=== PATIENT | male | born 1955 | race Caucasian/White ===

== ENCOUNTER 2017-06-23 09:29 | Inpatient (IN) | payer BC ==
[~2017-06-23 09:29] MED LIST: CEFAZOLIN 1 GM INJ
[2017-06-23] MEDS ORDERED: GABAPENTIN 300 MG CAP PO (10:00)
[2017-06-23] MEDS ORDERED: DEXAMETHASONE 1 MG TAB PO (10:00)
[2017-06-23] MEDS ORDERED: traMADol 50 MG TAB PO (10:00)
[2017-06-23] MEDS ORDERED: BUPIVACAINE 0.75%/DEXT (SPINAL) 2 ML INJ (10:04)
[2017-06-23] MEDS: VANCOMYCIN 1 GM (PMX) 250 ML IVPB (11:00)
[2017-06-23] MEDS ORDERED: morphine SULFATE/PF (10 MG/10 ML) INJ (11:16)
[2017-06-23] MEDS ORDERED: MIDAZOLAM 1 MG/ML 2 ML INJ (11:17)
[2017-06-23] MEDS ORDERED: METOCLOPRAMIDE 10 MG INJ (11:18)
[2017-06-23] MEDS ORDERED: ONDANSETRON 4 MG INJ (11:18)
[2017-06-23] MEDS ORDERED: PROPOFOL 20 ML (11:36)
[2017-06-23] MEDS ORDERED: ACETAMINOPHEN 1000MG/100ML IV 100 ML (11:36)
[2017-06-23] MEDS ORDERED: EPHEDrine SULFATE 50 MG/5 ML SYG ×3 (11:36→13:19)
[2017-06-23] MEDS: BUPIVACAINE 0.5% (SDV) 30 ML, morphine SULFATE (PF) 8 MG, EPINEPHrine 0.3 MG, CLONIDINE... IRR (12:04)
[2017-06-23] MEDS: TRANEXAMIC ACID 1,000 MG in DEXTROSE 5% 100 ML IVPB (12:05)
[2017-06-23] MEDS: POLYMYXIN/BACITRACIN 1L IRRIG (12:06)
[2017-06-23] MEDS: SOD CHLORIDE 0.9% 100 ML, TRANEXAMIC ACID 3,000 MG IRR (12:30)
[2017-06-23] MEDS: ONDANSETRON 4 MG INJ IV (14:28)
[2017-06-23] MEDS: MEPERIDINE 25 MG INJ IV (14:28)
[2017-06-23] MEDS: HYDROmorphONE (0.2 MG/ML) 10ML SYG IV ×2 (14:28→14:33)
[2017-06-23] MEDS ORDERED: HYDROmorphONE (0.2 MG/ML) 10ML SYG IV ×2 (14:30)
[2017-06-23] MEDS ORDERED: DIPHENHYDRAMINE 50 MG INJ IV ×2 (14:30→16:00)
[2017-06-23] MEDS: TRANEXAMIC ACID 1,000 MG in DEXTROSE 5% 100 ML IV ×2 (15:02→17:44)
[2017-06-23] MEDS: CEFAZOLIN 1 GM/50 ML (PMX) 50 ML IVPB (15:08)
[2017-06-23] MEDS ORDERED: TIZANIDINE 4 MG TAB PO (16:00)
[2017-06-23] MEDS ORDERED: ALBUTEROL HFA 8 GM INHALER INH (16:00)
[2017-06-23] MEDS ORDERED: ACETAMINOPHEN 500 MG TAB PO (16:00)
[2017-06-23] MEDS ORDERED: ZOLPIDEM 5 MG TAB PO (16:00)
[2017-06-23] MEDS ORDERED: DIAZEPAM 5 MG TAB PO (16:00)
[2017-06-23] MEDS ORDERED: morphine 2 MG INJ IV (16:00)
[2017-06-23] MEDS ORDERED: OXYCODONE/ACETAMINOPHEN (5/325) TAB PO (16:00)
[2017-06-23] MEDS ORDERED: ONDANSETRON 4 MG INJ IV (16:00)
[2017-06-23] MEDS: OXYCODONE/ACETAMINOPHEN (5/325) TAB PO ×2 (16:49→22:09)
[2017-06-23] MEDS: LACTATED RINGER'S 1,000 ML IV ×4 (16:50→23:30)
[2017-06-23] MEDS: DEXAMETHASONE 2 MG TAB PO ×2 (18:08→23:29)
[2017-06-23] MEDS: VANCOMYCIN 500MG/NS (PMX) 100 ML IVPB (18:08)
[2017-06-23 18:44] LABS: ADD MAN DIFF? NO
[2017-06-23 18:47] LABS: BASOPHILS % 0.2 % (0.0-2.0); EOSINOPHILS # 0.1 10^3/ul (0.0-0.5); EOSINOPHILS % 0.5 % (0.0-7.0); HEMATOCRIT 33.3 % (42.0-52.0); HEMOGLOBIN 11.6 g/dl (14.0-18.0); LYMPHOCYTES # 1.6 10^3/ul (0.8-2.9); MEAN CORPUSCULAR HGB CONC 34.8 g/dl (32.0-37.0); MEAN PLATELET VOLUME 8.3 fl (7.4-10.4); MONOCYTE # 0.7 10^3/ul (0.3-0.9); MONOCYTES % 5.6 % (0.0-11.0); NEUTROPHIL # 10.5 10^3/ul (1.6-7.5); NEUTROPHILS % 81.2 % (39.0-77.0); PLATELET COUNT 188 10^3/UL (140-415); RED BLOOD COUNT 3.74 10^6/ul (4.70-6.10)
[2017-06-23] MEDS: SENNA/DOCUSATE NA (8.6MG/50MG) TAB PO (20:36)
[2017-06-23] MEDS: TAMSULOSIN (SR) 0.4 MG CAP PO (20:36)
[2017-06-23] MEDS: morphine 2 MG INJ IV (20:36)
[2017-06-23] MEDS: DOXEPIN 25 MG CAP PO (20:36)
[2017-06-23] MEDS: DULOXETINE 30 MG CAP DR PO (20:37)
[2017-06-23] MEDS: GABAPENTIN 300 MG CAP PO (20:37)
[2017-06-23] MEDS ORDERED: DOXEPIN 10 MG CAP PO (21:00)
[2017-06-24] MEDS: morphine 2 MG INJ IV (01:07)
[2017-06-24] MEDS: LACTATED RINGER'S 1,000 ML IV ×2 (01:10→11:49)
[2017-06-24] MEDS: OXYCODONE/ACETAMINOPHEN (5/325) TAB PO ×3 (05:02→12:39)
[2017-06-24] MEDS: DEXAMETHASONE 2 MG TAB PO ×2 (05:32→12:39)
[2017-06-24 05:39] LABS: ADD MAN DIFF? NO
[2017-06-24 05:46] LABS: BASOPHILS % 0.1 % (0.0-2.0); HEMATOCRIT 31.8 % (42.0-52.0); HEMOGLOBIN 11.1 g/dl (14.0-18.0); LYMPHOCYTES # 0.6 10^3/ul (0.8-2.9); LYMPHOCYTES % 6.3 % (15.0-51.0); MEAN CORPUSCULAR HEMOGLOBIN 31.2 pg (29.0-33.0); MEAN CORPUSCULAR HGB CONC 34.9 g/dl (32.0-37.0); MEAN CORPUSCULAR VOLUME 89.3 fl (82.0-101.0); MEAN PLATELET VOLUME 8.6 fl (7.4-10.4); MONOCYTE # 0.4 10^3/ul (0.3-0.9); MONOCYTES % 4.1 % (0.0-11.0); NEUTROPHIL # 8.5 10^3/ul (1.6-7.5); NEUTROPHILS % 89.2 % (39.0-77.0); PLATELET COUNT 196 10^3/UL (140-415); RED BLOOD COUNT 3.56 10^6/ul (4.70-6.10); RED CELL DISTRIBUTION WIDTH 12.6 % (11.5-14.5)
[2017-06-24 05:46] LABS: WHITE BLOOD COUNT 9.6 10^3/ul (4.8-10.8)
[2017-06-24] MEDS: VANCOMYCIN 500MG/NS (PMX) 100 ML IVPB (05:51)
[2017-06-24] MEDS: SENNA/DOCUSATE NA (8.6MG/50MG) TAB PO (08:12)
[2017-06-24] MEDS: DULOXETINE 30 MG CAP DR PO (08:12)
[2017-06-24] MEDS: FINASTERIDE 5 MG TAB PO (08:12)
[2017-06-24] MEDS: HYDROCHLOROTHIAZIDE 12.5 MG CAP PO (08:13)
[2017-06-24] MEDS: LISINOPRIL 20 MG TAB PO (08:13)
[2017-06-24] MEDS: MAGNESIUM HYDROXIDE 30ML CUP PO (08:15)
[2017-06-24] MEDS ORDERED: NON-FORMULARY/PATIENT OWN MED (Naloxegol Oxalate (Movantik) 25 MG) PO (09:00)
[2017-06-24] MEDS: [UNRECOGNIZED DRUG - REMARK] XX (09:00)
[2017-06-24] MEDS: TAMSULOSIN (SR) 0.4 MG CAP PO (09:36)
== END 2017-06-24 14:30 | disposition home or self-care (01) | DRG 470 ==
LOC: REC 09:29 → MS1 15:40
PROVIDERS: Orthopaedic Surgery
PROC: 0SR904A Replacement of Right Hip Joint with Ceramic on Polyethylene Synthetic Substitute, Uncemented, Open Approach (ICD-10-PCS; principal; 2017-06-23 11:16)
DX: M16.11 Unilateral primary osteoarthritis, right hip (principal); N40.0 Benign prostatic hyperplasia without lower urinary tract symptoms; I10 Essential (primary) hypertension; F41.8 Other specified anxiety disorders
CPT/HCPCS: 71045; 72170; 73530; 85025; 86999; 87086; 93005; 97116; 97161